=== PATIENT | male | born 1990 ===

== ENCOUNTER → 2019-10-08 | Outpatient (CLI) | payer OTHER, SELFPAY ==
--- NOTE | 2019-10-08 13:44 | REP ---
LEFT SHOULDER THREE VIEWS: Three views of the left shoulder are performed. No acute fracture is seen. There may be some widening of the acromioclavicular joints, and possibly some mild elevation of the distal end of the clavicle. This raises the possibility of ligamentous injury. No other abnormalities are seen. IMPRESSION: No fracture visualized. Possible widening of the acromioclavicular joint and possible mild elevation of the distal end of the clavicle raises the possibility of ligamentous injury involving the acromioclavicular ligament and possibly coracoclavicular ligament. Electronically Signed by Jose Rafael Cadena MD 10/09/2019 12:31 P
== END ==
LOC: M LRY 12:07
PROVIDERS: ATTEND Nurse Practitioner Family
DX: M25.512 Pain in left shoulder (principal)